=== PATIENT | female | born 1955 | race Caucasian/White ===

== ENCOUNTER 2018-01-05 19:12 | Emergency (ER) | payer OTHER ==
[~2018-01-05] VITALS: Ht 158.8 cm; Wt 73.5 kg
[~2018-01-05 19:12] MED LIST: ADDE30XR PO; CLON.1 PO; CYCL-36 PO; DIAZ5 PO; HYDR-3535 PO; LIPI10TA PO; MAXA10TA2 PO; PRIL40CA PO; RANI150T PO
[2018-01-05 19:14] VITALS: BP 172/77; PULSE 84; RESP 20; TEMP 98.4; O2SAT 99
[2018-01-05] MEDS ORDERED: HYDR-3583 PO (19:47)
[2018-01-05] MEDS ORDERED: ATOR10TA15 PO (19:47)
[2018-01-05] MEDS ORDERED: VALS1TAB64 PO (19:47)
[2018-01-05] MEDS ORDERED: COQ-100C5 (19:47)
[2018-01-05] MEDS ORDERED: CLON0.1T PO (19:47)
[2018-01-05] MEDS ORDERED: OMEP40CA2 (19:47)
[2018-01-05] MEDS ORDERED: DIAZ5TAB PO (19:47)
[2018-01-05] MEDS ORDERED: MAXA10TA2 (19:47)
[2018-01-05] MEDS ORDERED: ADDE30XR PO (19:47)
--- NOTE | 2018-01-05 20:39 | RADRPT ---
EXAM DATE: 01/05/2018 8:15 PM EDT AGE/SEX: 62 years / Female INDICATIONS: Fall. Right ankle pain. CLINICAL DATA: This is the patient's initial encounter. Patient reports that signs and symptoms have been present for 1 day and indicates a pain score of 5/10. MEDICAL/SURGICAL HISTORY: Cardiovascular disease. Gastroesophageal reflux disease. Hiatal her [place]. Hypertension. Seizures. Appendectomy. Cholecystectomy. section. COMPARISON: No prior exams available for comparison. FINDINGS: Bony structures are intact and in normal alignment. Joints are intact without dislocation or signifi cant arthropathy. Osseous density is normal. Soft tissues are unremarkable. No radiopaque foreign bodies seen. CONCLUSION: Electronically signed by: Mauro Fletcher MD 01/05/2018 8:37 PM EDT
--- NOTE | 2018-01-05 20:40 | RADRPT ---
EXAM DATE: 01/05/2018 8:17 PM EDT AGE/SEX: 62 years / Female INDICATIONS: Fall. Right foot pain. CLINICAL DATA: This is the patient's initial encounter. Patient reports that signs and symptoms have been present for 1 day and indicates a pain score of 5/10. MEDICAL/SURGICAL HISTORY: Cardiovascular disease. Gastroesophageal reflux disease. Hiatal her [place]. Seizures. Hypertension. Appendectomy. Cholecystectomy. section. COMPARISON: No prior exams available for comparison. FINDINGS: Bony structures are intact and in normal alignment. Osseous density is normal. Soft tissues are unre markable. No radiopaque foreign bodies seen. CONCLUSION: No acute bony abnormality. Mild osteoarthritis of the first MTP. Electronically signed by: Mauro Fletcher MD 01/05/2018 8:38 PM EDT
[2018-01-05] MEDS ORDERED: WALKER/ADULT/FO1 MIS ×2 (20:44→20:47)
--- NOTE | 2018-01-05 20:45 | PD ---
HPI Chief Complaint: Injury Time Seen by Provider: 19:32 Travel History International Travel<30 days: No Contact w/Intl Traveler<30days: No Traveled to known affect area: No History of Present Illness HPI 62-year-old female presents to the emergency department with complaint of right ankle injury and right foot injury 4 days after rolling it while moving. Pain is to the lateral aspect. Reports swelling to the ankle and the foot. Has been ambulatory on the affected extremity. Denies paresthesias, loss of sensation, decreased strength to the affected extremity. Rates pain 8/10. Worse with ambulation, movement, palpation. Has been taking hydrocodone for pain with some relief. Primary [facility]ARE providers in [place]. Allergies as listed on the chart. History of hypertension, liver disease, seizure 1 and is not on medications. Has no other medical complaints. No other modifying factors or associated signs and symptoms per [facility] Past Medical History Autoimmune Disease: No Cancer: Yes (SKIN) Cardiovascular Problems: Yes High Cholesterol: Yes Diabetes: No Diminished Hearing: No Endocrine: No Gastrointestinal Disorders: Yes (GERD) GERD: Yes Genitourinary: No Hiatal Hernia: Yes Immune Disorder: No Musculoskeletal: Yes Neurologic: Yes (SEIZURE) Psychiatric: Yes (ADHD) Reproductive: No Respiratory: Yes (BLEBS ) Seizures: Yes (X1) Thyroid Disease: No ?: Not Ovarian Cysts: Yes (REMOVED) Past Surgical History Abdominal Surgery: Yes (APPENDECTOMY ) AICD: No Appendectomy: Yes Section: Yes Cholecystectomy: Yes Gynecologic Surgery: Yes (3 , OVARIAN CYST, BILATERAL BREAST AUGMENTATION) Joint Replacement: No Oral Surgery: Yes (SQUAMOUS CELL CA REMOVED FROM MOUTH. ) Pacemaker: No Other Surgery: Yes (BILATERAL BREAST AUGEMENTATION) Social History Alcohol Use: Yes (OCC) Tobacco Use: No Substance Use: No Allergies-Medications (Allergen,Severity, Reaction): Coded Allergies: gabapentin (Unverified Adverse Reaction, Severe, Nausea/Vomiting, 01/05/18) SEVERE MOOD CHANGES diclofenac (Unverified Adverse Reaction, Intermediate, STOMACH UPSET, AGITATION, 01/05/18) etodolac (Unverified Adverse Reaction, Intermediate, STOMACH UPSET, AGITATION, 01/05/18) flurbiprofen (Unverified Adverse Reaction, Intermediate, STOMACH UPSET, AGITATION, 01/05/18) ibuprofen (Unverified Adverse Reaction, Intermediate, STOMACH UPSET, AGITATION, 01/05/18) indomethacin (Unverified Adverse Reaction, Intermediate, STOMACH UPSET, AGITATION, 01/05/18) ketoprofen (Unverified Adverse Reaction, Intermediate, STOMACH UPSET, AGITATION, 01/05/18) ketorolac (Unverified Adverse Reaction, Intermediate, STOMACH UPSET, AGITATION, 01/05/18) naproxen (Unverified Adverse Reaction, Intermediate, STOMACH UPSET, AGITATION, 01/05/18) oxaprozin (Unverified Adverse Reaction, Intermediate, STOMACH UPSET, AGITATION, 01/05/18) Uncoded Allergies: STEROIDS (Adverse Reaction, Unknown, "SICK TO STOMACH, INCREASED PAIN, UNABLE TO TOLERATE", 01/07/16) Reported Meds & Prescriptions Reported Meds & Active Scripts Active Walker/Adult/Folding (Device) 1 Mis Mis Ea .XX DIRECTED Reported Valsartan 80 Mg Tab 80 Mg PO DAILY Coq-10 Tr (Coenzyme Q10 (Ubidecarenone)) 100 Mg Cap Omeprazole 40 Mg Cap 40 Mg DAILY Hydrocodone-Acetaminophen 10-325 mg Tab 1 Tab PO Q4H PRN Diazepam 5 Mg Tab 5 Mg PO TID PRN Clonidine (Clonidine HCl) 0.1 Mg Tab 0.1 Mg PO BID Atorvastatin (Atorvastatin Calcium) 10 Mg Tab 10 Mg PO HS Maxalt (Rizatriptan Benzoate) 10 Mg Tab Adderall Xr 24 HR (Amphetamine/Dextroamphetamine) 30 Mg Cap 30 Mg PO BID Once daily in the morning. Review of Systems Except as stated in HPI: all other systems reviewed are Neg Physical Exam Narrative GENERAL: Well-nourished, well-developed elderly, femur patient, in no acute distress SKIN: Warm and dry. HEAD: Atraumatic. Normocephalic. EYES: Pupils equal and round. No scleral icterus. No injection or drainage. ENT: Mucosa pink and moist. Airway patent. NECK: Trachea midline. CARDIOVASCULAR: Regular rate. RESPIRATORY: No accessory muscle use. GASTROINTESTINAL: Rounded. MUSCULOSKELETAL: Right ankle with point tenderness to the lateral malleolus zone with palpation; with edema; no obvious deformity; without ecchymosis or erythema. Lateral aspect of right foot with tenderness on palpation and with edema; without erythema, ecchymosis; no obvious deformity. Right lower extremity is supple and nontense with 2+ pedal pulse and sensory intact. No obvious deformities. No clubbing. No cyanosis. No edema. NEUROLOGICAL: Awake and alert. Oriented 3. No obvious cranial nerve deficits. Motor grossly within normal limits. Normal speech. PSYCHIATRIC: Appropriate mood and affect; insight and judgment normal. Data Data Last Documented VS Vital Signs Date Time Temp Pulse Resp B/P (MAP) Pulse Ox O2 Delivery O2 Flow Rate FiO2 01/05/18 19:14 98.4 84 20 172/77 (108) 99 Orders Orders Ankle, Complete ([id number]) (01/05/18 19:35) Foot, Complete ([id number]) (01/05/18 19:50) Splint Or Brace Apply/Monitor (01/05/18 20:45) Ed Discharge Order (01/05/18 20:45) [facility] Medical Decision Making Medical Screen Exam Complete: Yes Emergency Medical Condition: Yes Medical Record Reviewed: Yes Differential Diagnosis Sprain, injury, fracture Narrative Course 62-year-old female with right ankle injury and right foot injury. I have for the patient pain medication and she declined. Right foot and right ankle x-ray ordered. 2044: Right ankle and foot x-rays conclude; Foot X-Ray 01/05/181949 Signed Impressions: CONCLUSION: No acute bony abnormality. Mild osteoarthritis of the first MTP. Ankle X-Ray 01/05/181934 Signed Impressions: CONCLUSION: Right ankle x-ray with no acute findings. Discussed findings with the patient and her family at the bedside. Patient has a walker at home for support. Mohit bandage and ankle stirrup splint provided for support. Patient has hydrocodone prescription at home for pain. Instructed patient to follow-up outpatient if symptoms persist greater than 7-10 days. Instructed patient to follow up with primary care provider. Patient verbalizes understanding and agreement with treatment plan. Patient is medically cleared and stable for discharge. Discussed reasons to return to the emergency department. Patient agrees with treatment plan. The patients vital signs are stable and the patient is stable for outpatient follow-up and treatment. Patient discharged home, stable and in no acute distress. Diagnosis Primary Impression: Right ankle sprain Qualified Codes: S93.401A - Sprain of unspecified ligament of right ankle, initial encounter Additional Impression: Right foot sprain Qualified Codes: S93.601A - Unspecified sprain of right foot, initial encounter Referrals: Primary Care Physician Patient Instructions: Ankle Sprain (ED), Foot Sprain (ED), General Instructions Additional Instructions: Tylenol or ibuprofen as directed and as needed for pain and inflammation Rest, ice, compress, and elevate extremity to decrease pain and inflammation Ankle Brace for support Walker/cane for support Avoid aggravating activity; increase activity as tolerated Follow-up with primary care provider Return to the emergency department immediately with worsening of symptoms Med/Other Pt SpecificInfo: Prescription(s) given Scripts Walker/Adult/Folding (Walker/Adult/Folding) 1 Mis Mis EA .XX DIRECTED, #1 0 Refills Prov: Chani Kumar 01/05/18 Disposition: 01 DISCHARGE HOME Condition: Stable Chani Kumar Jan 05, 2018 20:45
== END 2018-01-05 21:10 | disposition home or self-care (01) ==
LOC: PHEFT 19:12
DX: S99.911A Unspecified injury of right ankle, initial encounter (principal); S93.401A Sprain of unspecified ligament of right ankle, initial encounter; S93.601A Unspecified sprain of right foot, initial encounter; X50.9XXA Other and unspecified overexertion or strenuous movements or postures, initial encounter; I10 Essential (primary) hypertension; K76.9 Liver disease, unspecified; E78.00 Pure hypercholesterolemia, unspecified; F90.9 Attention-deficit hyperactivity disorder, unspecified type; K21.9 Gastro-esophageal reflux disease without esophagitis; K44.9 Diaphragmatic hernia without obstruction or gangrene; Z85.828 Personal history of other malignant neoplasm of skin
CPT/HCPCS: 73610; 73630; 99283; L1906